=== PATIENT | female | born 1960 | race Caucasian/White ===

== ENCOUNTER 2016-04-04 23:39 | Emergency (ER) | payer OTHER ==
--- NOTE | ~2016-04-04 | US85 ---
[facility] A Service of [facility] RADIOLOGY TEXT RESULTS PATIENT: HUANG LIMA LOCATION: [facility] : 62 UNIT #: [id number] AGE: [address]: Sammy Sarmiento MD SEX: F ORDER DR: [id number] [facility] [address] [place], [place] [address] [id number] E MR#: [id number] Acc #: [id number] NAME: HUANG LIMA : 1960 SEX: F STUDY DATE/TIME: 04/05/2016 8:02 UNIT: [facility] ROOM: STUDY DESCRIPTION: LE Veins Unilat or Ltd Stdy Attending Physician: Sammy Sarmiento M.D. Ordering Physician: Yanely Salvador A.P.R.N. Primary Care Physician: Noemi Connolly M.D. MEDICAL IMAGING REPORT This report is preliminary unless electronic signature is present EXAM Right lower extremity venous ultrasound. HISTORY Pain for three days. Previous surgery for blood clot in right leg in January. FINDINGS The venous system is evaluated from the common femoral region down to the trifurcation veins and there is prompt compression of the common femoral, deep femoral, popliteal, anterior tibial, posterior tibial, peroneal and saphenous veins. The femoral vein appears to be thrombosed, its lumen is noncompressible and there is no flow. IMPRESSION Patient's study is positive for deep venous thrombosis in the right femoral vein. Otherwise the study is normal. Dictated by... Jan Blake M.D. THIS IS AN ELECTRONICALLY VERIFIED REPORT Jan Blake M.D. at 04/05/2016 1:57 PM Rico TD: 04/05/2016 10:25 JOB #: [id number] MEDICAL IMAGING REPORT COPY
[2016-04-04 23:11] LABS: URINE SOURCE CLEAN CATCH
[2016-04-04 23:16] LABS: URINE APPEARANCE CLEAR; URINE BILIRUBIN NEG (NEG); URINE BLOOD NEG (NEG); URINE COLOR YELLOW; URINE GLUCOSE NEG (NEG); URINE KETONE NEG (NEG); URINE LEUKOCYTE ESTERASE TRACE (NEG); URINE NITRATE NEG (NEG); URINE PROTEIN NEG (NEG); URINE SPECIFIC GRAVITY 1.017 (1.003-1.035); URINE UROBILINOGEN 0.2 MG/DL (NEG)
[2016-04-04 23:19] LABS: URBCS1 AUWI 0-2 /[HPF] (0-2); URINE BACTERIA AUWI NEG (NEGATIVE); URINE SQUAMOUS EPITHELIAL CELL OCC /[HPF]
[2016-04-04 23:22] LABS: CULTURE INDICATED? NO
[~2016-04-04 23:39] MED LIST: ADVAIR 250-501 EAC1 IH; ADVAIR 2501 DISK W/D PO; ADVAIR INH; ALBUTEROL MININEB NEB; ALBUTEROL17 G1 IH; ALBUTEROL17 GM INH; ALBUTEROL17 GM NEB; AVANDIA PO; AZITHROMYCIN250 MG PO; BACTROBAN15 GM TOP; BYETTA10 MCG/0.0 INJ; DOXYCYCLINE HY100 M1 PO; DOXYCYCLINE PO; GABAPENTIN400 M2 PO; GLUCOPHAGE XR500 MG PO; GLUCOPHAGE500 M1 PO; GLUCOPHAGE500 MG PO; HUMALOG100 U/M2 SUBQ; HUMALOG100 U/ML SUBQ; JANUVIA100 MG PO; LANTUS100 U/ML SUBQ; LEVAQUIN750 M1 PO; LEVEMIR SUBQ; LEVEMIR100 UNITS/ SUBQ; LINZESS145 MCG PO; METFORMIN PO; MIRALAX17 GM PO; NO MEDICATIONS; NORCO 5/325 TAB1 TAB PO; NOVOLOG100 UNITS/ SUBQ; PERCOCET 5-3251 TAB PO; PHENERGAN PO; PHENERGAN W/CO120 ML PO; PREDNISONE10 MG PO; PREDNISONE50 MG PO; PRILOSEC PO; PRINIVIL5 MG PO; REQUIP1 MG PO; RIFAMPIN300 MG PO; SINGULAIR PO; SPIRIVA18 MCG INH; SYNTHROID0.05 MG PO; ZESTRIL5 MG PO; ZOFRAN PO; [UNRECOGNIZED DRUG - OTHER]
[2016-04-05 00:20] LABS: BASOPHIL# 0.1 X10e3 (0-0.3); BASOPHIL% 1.2 % (0-2.5); EOSINOPHIL# 0.4 X10e3 (0-0.7); EOSINOPHIL% 5.4 % (0.0-7.0); HEMATOCRIT 36.5 % (35.0-45.0); HEMOGLOBIN 12.4 gm/dL (12.0-16.0); LYMPHOCYTE# 2.6 X10e3 (1.0-3.5); LYMPHOCYTE% 37.2 % (17.0-45.0); MEAN CELL VOLUME 86.7 FL (83-96); MEAN CORPUSCULAR HEMOGLOBIN 29.4 PG (28-34); MEAN CORPUSCULAR HGB CONC 33.9 g/dL (30-36); MEAN PLATELET VOLUME 7.2 FL (6.5-11.5); MONOCYTE# 0.7 X10e3 (0-1.0); MONOCYTE% 10.1 % (3.0-12.0); NEUTROPHIL# 3.3 X10e3 (1.5-7.1); NEUTROPHIL% 46.1 % (40-75); PLATELET COUNT 259 X10e3 (140-420); RED BLOOD COUNT 4.21 X10e (3.90-5.30); RED CELL DISTRIBUTION WIDTH 13.5 % (11.0-15.5); WHITE BLOOD COUNT 7.1 X10e3 (4.0-10.5)
[2016-04-05 00:37] LABS: PARTIAL THROMBOPLASTIN TIME 24.1 SECONDS (23.5-31.3)
[2016-04-05 00:39] LABS: DIFF IND NO
[2016-04-05 00:44] LABS: ALBUMIN SERUM 3.9 g/dL (3.5-5.0); ALKALINE PHOSPHATASE 46 U/L (32-92); ALT (SGPT) 55 U/L (10-40); AST (SGOT) 35 U/L (10-42); BILIRUBIN,TOTAL 0.3 mg/dL (0.2-2.0); BLOOD UREA NITROGEN 27 mg/dL (9-23); CALCIUM SERUM 9.1 mg/dL (8.4-10.2); CARBON DIOXIDE 26 mmol/L (22-31); CHLORIDE 101 mmol/L (100-111); CREATININE SERUM 0.6 mg/dL (0.6-1.4); GLOM FILT RATE Estimated ABOVE60 mL/min (>60); GLUCOSE FASTING 156 mg/dL (70-110); POTASSIUM 4.5 mmol/L (3.5-5.1); PROTEIN TOTAL SERUM 7.9 g/dL (6.0-8.3); SODIUM 136 mmol/L (135-145)
== END 2016-04-05 11:07 | disposition home or self-care (01) ==
LOC: CED 23:39
PROVIDERS: Nurse Practitioner
DX: I82.411 Acute embolism and thrombosis of right femoral vein (principal); M54.5 Low back pain; E78.5 Hyperlipidemia, unspecified; E11.9 Type 2 diabetes mellitus without complications; K21.9 Gastro-esophageal reflux disease without esophagitis; I10 Essential (primary) hypertension; Z88.0 Allergy status to penicillin
CPT/HCPCS: 36415; 80053; 81003; 82947; 83880; 85025; 85379; 85610; 85730; 93971; 96374; 96375; 99284; J2270; J2405; J2550

== ENCOUNTER 2016-05-11 23:59 | Emergency (ER) | payer OTHER ==
--- NOTE | ~2016-05-11 | CT2 ---
[facility] A Service of [facility] RADIOLOGY TEXT RESULTS PATIENT: HUANG LIMA LOCATION: [facility] : 62 UNIT #: [id number] AGE: [address]: Sammy Powell MD SEX: F ORDER DR: [id number] [facility] [address] [place], [place] [address] [id number] E MR#: [id number] Acc #: [id number] NAME: HUANG LIMA. : 1960 SEX: F STUDY DATE/TIME: 05/12/2016 3:36 UNIT: [facility] ROOM: STUDY DESCRIPTION: CT Abd and Pelv W Cont Attending Physician: Sammy Powell M.D. Ordering Physician: Sammy Powell M.D. Primary Care Physician: Noemi Connolly M.D. MEDICAL IMAGING REPORT This report is preliminary unless electronic signature is present EXAM CT abdomen and pelvis with contrast 05/12/2016 HISTORY 55-year-old female with abdominal pain for 2 days radiating to back. Diarrhea. COMPARISON CT abdomen and pelvis 09/15/2015 TECHNIQUE Helical scan performed through the abdomen and pelvis following administration of IV contrast. Coronal and sagittal reformatted images. This CT exam was performed with one or more of the following radiation dose reduction techniques: automatic exposure control, adjustment of mA and/or kV according to patient size, and iterative reconstruction. FINDINGS Visualized lung bases are unremarkable. The liver, spleen, pancreas, both adrenal glands, and both kidneys are within normal limits. Bilateral extrarenal pelves are again noted. No urinary tract stones or hydronephrosis. Abdominal aorta normal in course and caliber with extensive atherosclerotic calcification. Gallbladder surgically absent. Ventral abdominal wall hernia repair. Small bowel unremarkable without obstruction. Appendix is normal. Colon unremarkable. Moderate stool burden. No free fluid or free air. Urinary bladder is unremarkable. Uterus surgically absent. No free pelvic fluid. No acute bony abnormality. IMPRESSION 1. No acute abdominal or pelvic findings. [facility] A Service of [facility] RADIOLOGY TEXT RESULTS PATIENT: HUANG LIMA LOCATION: [facility] #: [id number] : 62 UNIT #: [id number] AGE: [address]: Sammy Powell MD SEX: F ORDER DR: 2. Normal appendix. 3. Moderate stool burden. 4. Cholecystectomy and ventral abdominal wall hernia repair. 5. Hysterectomy. Dictated by... Miles Harp M.D. THIS IS AN ELECTRONICALLY VERIFIED REPORT Miles Harp M.D. at 05/13/2016 4:40 PM NEFTALY/kathi TD: 05/12/2016 17:08 JOB #: [id number] MEDICAL IMAGING REPORT Page 1 of 1 COPY
[2016-05-12 02:57] LABS: BASOPHIL# 0.2 X10e3 (0-0.3); BASOPHIL% 1.4 % (0-2.5); EOSINOPHIL# 0.4 X10e3 (0-0.7); EOSINOPHIL% 3.5 % (0.0-7.0); HEMATOCRIT 38.1 % (35.0-45.0); HEMOGLOBIN 12.9 gm/dL (12.0-16.0); LYMPHOCYTE# 3.2 X10e3 (1.0-3.5); MEAN CORPUSCULAR HEMOGLOBIN 28.8 PG (28-34); MEAN CORPUSCULAR HGB CONC 33.9 g/dL (30-36); MEAN PLATELET VOLUME 6.7 FL (6.5-11.5); MONOCYTE# 0.9 X10e3 (0-1.0); MONOCYTE% 8.6 % (3.0-12.0); NEUTROPHIL# 6.3 X10e3 (1.5-7.1); NEUTROPHIL% 57.5 % (40-75); PLATELET COUNT 325 X10e3 (140-420); RED BLOOD COUNT 4.48 X10e (3.90-5.30); WHITE BLOOD COUNT 10.9 X10e3 (4.0-10.5)
[2016-05-12 03:00] LABS: DIFF IND NO
[2016-05-12 03:27] LABS: BILIRUBIN, DIRECT 0.1 mg/dL (0.0-0.2); BILIRUBIN,INDIRECT 0.4 mg/dL (0.0-0.9); BILIRUBIN,TOTAL 0.5 mg/dL (0.2-2.0); BUN/CREATININE RATIO 33.33; CALCIUM SERUM 9.5 mg/dL (8.4-10.2); CREATININE SERUM 0.6 mg/dL (0.6-1.4); GLOM FILT RATE Estimated 103.3 mL/min (>60); POTASSIUM 4.9 mmol/L (3.5-5.1)
[2016-05-12 05:47] LABS: URINE SOURCE CLEAN CATCH
[2016-05-12 06:07] LABS: URINE APPEARANCE CLEAR; URINE BILIRUBIN NEG (NEG); URINE BLOOD NEG (NEG); URINE COLOR YELLOW; URINE GLUCOSE NORM (NORM); URINE KETONE NEG (NEG); URINE LEUKOCYTE ESTERASE NEG (NEG); URINE NITRATE NEG (NEG); URINE PROTEIN NEG (NEG); URINE SPECIFIC GRAVITY 1.015 (1.003-1.035); URINE UROBILINOGEN NORM (NORM)
[2016-05-12 06:09] LABS: CULTURE INDICATED? NO
== END 2016-05-12 06:30 | disposition home or self-care (01) ==
LOC: CED 23:59
PROVIDERS: Emergency Medicine
DX: K59.00 Constipation, unspecified (principal); R11.0 Nausea; I10 Essential (primary) hypertension; E11.9 Type 2 diabetes mellitus without complications; F17.200 Nicotine dependence, unspecified, uncomplicated; Z88.0 Allergy status to penicillin
CPT/HCPCS: 36415; 74177; 80048; 80076; 81003; 82150; 83690; 85025; 96361; 96372; 96374; 96375; 99284; J0500; J1885; J2405; Q9967

== ENCOUNTER 2016-06-10 17:46 | Inpatient (IN) | payer OTHER ==
--- NOTE | ~2016-06-10 | HP ---
Unit #: [id number] #: [id number] Patient: HUANG LIMA [id number] [address] [place], [place] [address] [id number] I MR#: [id number] NAME: HUANG LIMA. ROOM: 328 Age: 55 Sex: F Admission Date: 06/10/2016 : 1960 Attending Physician: Noemi Connolly M.D. Primary Care Physician: Noemi Connolly M.D. HISTORY AND PHYSICAL CHIEF COMPLAINT Chest pain. HISTORY OF PRESENT ILLNESS Ms. Lima is a 55-year-old female who is very well known to me from the office setting. Her was last admission to [facility] was in 01/2016. The patient had chest pain. It was sudden in onset. It was constant. She took nitroglycerin at home and then EMS was called. The patient got nitroglycerin times five by EMS with partial relief of the pain. The patient also complained of shortness of breath associated with chest pain. No complaint of palpitations. No complaint of sweating. It was moderate in severity. It was like a pressure. The patient called it like angina kind of pain. The patient also complained of right lower extremity pain, swelling and burning and a wound. The patient has had a history of wound in the lower extremity. She has a history of peripheral arterial disease and had femoral popliteal bypass surgery done in 01/2016. PAST MEDICAL HISTORY The patient does have significant past medical history that includes 1. Diabetes. 2. Nonhealing diabetic ulcers in the past. 3. Diabetes mellitus type 2, uncontrolled. 4. Hypertension. 5. Hyperlipidemia. 6. Chronic obstructive pulmonary disease. 7. History of hepatitis C. PAST SURGICAL HISTORY 1. Hysterectomy. 2. Abdominal hernia repair. 3. Cholecystectomy. 4. History of right femoral to [id number] popliteal artery bypass. SOCIAL HISTORY The patient does not have any history of nicotine abuse. No history of alcohol abuse or drug abuse. FAMILY HISTORY Unremarkable. ALLERGIES Penicillin and sulfa. Unit #: [id number] #: [id number] Patient: HUANG LIMA REVIEW OF SYSTEMS No history of fever, chills or rigors. She does complain of swelling and wound on the right lower extremity more than the left, although she has had chronic ulceration on the bilateral lower extremities. She has had a history of peripheral arterial disease and was seen by Dr. Austin last visit and had surgery done. She does not complain of nausea and vomiting. She does not complain of syncopal episode or dizziness. She does not complain of abdominal pain. No constipation or diarrhea. PHYSICAL EXAMINATION GENERAL: The patient is seen and evaluated in room 328. VITALS: Blood pressure 158/87, respiratory rate 18, pulse 90, temperature 98.9, oxygen saturation 96% on room air. HEENT: Head is normocephalic. Eye movements are normal. Normal conjunctivae. NECK: Supple. No jugular venous distension. CHEST: Fair air entry. No additional sounds. HEART: S1 and S2 positive. Regular rhythm. ABDOMEN: Soft, nontender. EXTREMITIES: The patient has open weeping scabbed wound on the right lateral calf, mild surrounding cellulitis was seen. NEUROLOGIC: Awake, alert and oriented times three. No focal neurological deficits. DIAGNOSTIC STUDIES IMAGING: Ultrasound of the lower extremities was done, which was negative for any DVT. LABORATORY: BNP 16, white blood cell count 10.5, hemoglobin 13.3, hematocrit 39.7, platelet count 285. Sodium 137, potassium 4.2, chloride 103, BUN 20, creatinine 0.5. Liver enzymes are normal. Troponin was less than 0.05. Sugar this morning was 122. ASSESSMENT/PLAN The patient is being admitted to the telemetry unit with 1. Chest pain. Acute myocardial infarction has been ruled out. The patient has been seen by Dr. Cowan. The patient had a cardiac catheterization done which showed RCA is 100% at the junction of the proximal one-third and distal two-thirds. Recommendation was to add beta adwoa, Imdur, to the present medical therapy. If chest pain continues on maximal medical therapy, then could attempt PCI on the RCA or consider coronary artery bypass grafting. This will be as per cardiology. 2. Right lower extremity cellulitis and wound. Wound care consult has been done. Culture has been done. The patient is being started on Rocephin. Continue that at this time. The patient is not on any leukocytosis. 3. Diabetes mellitus type 2. Continue Accu-Cheks morning and evening and insulin sliding scale low-dose protocol and diabetic diet. Continue to observe closely. 4. Hypertension which is stable. Continue home medication. The plan of care has been discussed with the patient at length. She does verbalize understanding. Dictated by Unit #: [id number] #: [id number] Patient: HUANG LIMA Zaynab New TD: 06/11/2016 14:48 JOB #: [id number] HISTORY AND PHYSICAL Page 1 of 1 X Noemi Connolly MD X HISTORY AND PHYSICAL
--- NOTE | ~2016-06-10 | EKG ---
PATIENT: HUANG LIMA UNIT #: [id number] Ventricular Rate: 83 BPM Atrial Rate: 83 BPM P-R Interval: 162 ms QRS Duration: 100 ms Q-T Interval: 368 ms QTC Calculation(Bezet): 432 ms P Arcadia: 37 degrees Calculated R [place]cad[place]: 11 degrees Calculated T Arcadia: 34 degrees Diagnosis Line: Normal sinus rhythm Diagnosis Line: Normal ECG Diagnosis Line: When compared with ECG of 10-JUN-2016 14:46, Diagnosis Line: (unconfirmed) Diagnosis Line: No significant change was found Diagnosis Line: Confirmed by MASSIMO ARRIOLA MD ([id number]) on Diagnosis Line: 06/11/2016 4:38:23 PM INTERPRETING MD: FLAKO MONROY
--- NOTE | ~2016-06-10 | CO ---
Unit #: [id number] #: [id number] Patient: HUANG LIMA [id number] [address] [place], [place] [address] [id number] I MR#: [id number] NAME: HUANG LIMA ROOM: 328 Age: 55 Sex: F Admission Date: 06/10/2016 : 1960 Attending Physician: Noemi Connolly M.D. Primary Care Physician: Noemi Connolly M.D. Consultation Date: 06/11/2016 CONSULTATION REPORT REASON FOR CONSULTATION Chest pain. HISTORY OF PRESENT ILLNESS This is a 55-year-old white female with known history of peripheral arterial disease, January 2016 had a right femoral-popliteal artery bypass graft. Also history of diabetes with nonhealing wounds in the past. Hypertension, hyperlipidemia, reformed smoker, COPD, who came to the emergency room with a new wound on the outer aspect of her right leg calf area and also chest pain. According to the patient, she started having problems with her leg. She said she just scratched but it has continued to be more swollen and has some redness, appears to be some cellulitis on that exterior aspect of the calf on the right lower extremity. Denies any fever or chills. She says she has been treated for some recent what sounds like a sinus infection or a chest cold. The patient says she started developing some mid sternal chest pain yesterday morning. She said it feels like just a burning, stabbing pressure. She said it lasts just a few minutes. She denies any diaphoresis or nausea. She does feel a little palpitations and some increased shortness of breath at times. She did have some sublingual nitroglycerin which she took and she said it helped for a little while but it recurred. She took an aspirin at home. Looking back on her records, we have seen her in the past for the chest pain but did not do any extensive testing. She has never had a heart catheterization but did have a stress test in January which did show a possible basal inferior wall old infarct, otherwise no ischemia and her ejection fraction was normal. The patient has been admitted for further evaluation and workup. Cardiology has been asked to evaluate. PAST MEDICAL HISTORY 1. Diabetes mellitus type 2. 2. Hypertension. 3. Hyperlipidemia. 4. COPD, ex-smoker, quit 2 years ago. 5. Poor wound healing, diabetic ulcers in bilateral feet which are healed. 6. Status post right femoral popliteal artery bypass surgery 01/31/2016. 7. January 2016, dobutamine Cardiolite stress. No ischemia but a possible basal inferior wall old infarct. Ejection fraction 51%. 8. Hypothyroidism. 9. January 2016, 2D echo, normal LVEF. Diastolic dysfunction. Normal valves. 10. Reformed smoker. Unit #: [id number] #: [id number] Patient: HUANG LIMA PAST SURGICAL HISTORY 1. Femoral popliteal artery bypass surgery January 2016. 2. Hysterectomy. 3. Abdominal hernia repair. 4. Cholecystectomy. HOME MEDICATIONS 1. Nitrostat 0.4 mg sublingual p.r.n. for chest pain. 2. Aspirin 81 mg p.o. daily. 3. Oxycodone/acetaminophen 10/325 one tablet p.o. q.4 h. p.r.n. 4. Prilosec 40 mg p.o. daily. 5. Bactrim DS one tablet p.o. b.i.d. 6. Synthroid 50 mcg p.o. daily. 7. MiraLAX 17 gram p.o. daily. 8. Linzess 145 mcg p.o. daily. 9. Lipitor 20 mg p.o. daily. 10. Lisinopril 5 mg p.o. daily. 11. Levemir 35 units subcu daily. 12. Humalog 8 units subcu t.i.d. 13. Acetaminophen 650 mg q.4 h. p.r.n. pain. 14. Spiriva one inhalation daily. 15. Neurontin 400 mg p.o. t.i.d. p.r.n. 16. Januvia 100 mg p.o. daily. 17. Colace 100 mg p.o. b.i.d. ALLERGIES Penicillin. SOCIAL HISTORY Patient quit smoking 2 years ago. No alcohol or illicit drug abuse. She is trying to get disability due to her multiple medical problems. FAMILY HISTORY No known coronary artery disease in immediate family members. REVIEW OF SYSTEMS See details in HPI. PHYSICAL EXAMINATION VITAL SIGNS: Blood pressure 157/70, heart rate 88, respirations 16, temperature 98.1, O2 saturation 98% on room air. GENERAL: Ms. Lima is a 55-year-old white female in no acute respiratory distress. She is awake, alert, and oriented. NECK: Trachea midline. No thyromegaly, lymphadenopathy. Normal carotid upstrokes. No jugular venous distention. HEART: S1, S2. Regular rate and rhythm. No clicks, murmurs, or rubs. LUNGS: Diminished with a few faint scattered wheezes. ABDOMEN: Slightly obese, soft, nontender. Positive bowel sounds are present. EXTREMITIES: Pedal pulses are palpable weak on the right. They are warm to touch. There is a little bit of erythema on the right lower extremity around the calf. Trace right lower extremity pedal edema. DIAGNOSTIC STUDIES LABORATORY: Glucose 132, BUN 22, creatinine 0.6, EGFR 103, sodium 134, potassium 4.8, chloride 101, CO2 is 25, calcium 8.7, total protein 9.0, albumin 4.2, total bilirubin 0.2, AST 25, ALT 39, alkaline phosphatase 72. BNP 16. WBC 9.8, hemoglobin 12.4, hematocrit 36.6, platelets 260. Unit #: [id number] #: [id number] Patient: HUANG LIMA Initial cardiac enzymes CKMB 1.9, troponin less than 0.05; CKMB 1.7, troponin less than 0.05. INR 1.0. IMAGING: Chest x-ray shows no active disease. CARDIOVASCULAR: EKG shows normal sinus rhythm with ventricular rate of 83 beats per minute, probable Q wave in lead III, low voltage in aVF, poor R-wave progression. IMPRESSION 1. Chest pain. 2. January 2016 dobutamine Cardiolite stress test, no ischemia, possible basal inferior wall old infarct. Ejection fraction of 51%. 3. Right lower extremity cellulitis and wound. 4. History of peripheral arterial disease, status post femoral popliteal artery bypass 01/31/2016. 5. Hypothyroidism. 6. Diabetes mellitus type 2. 7. Hypertension. 8. Hyperlipidemia. 9. Normal LVEF on echo January 2016. 10. Chronic obstructive pulmonary disease. 11. Ex-smoker quit 2 years ago. PLAN 1. Cardiology consult to evaluate patient's chest pain. The patient's chest pain is suspicious for unstable angina and she has multiple risk factors including diabetes mellitus, hypertension, hyperlipidemia, quit smoker 2 years ago. With these multiple comorbidities and her symptoms and she just had a stress test four months ago, will proceed with a cardiac catheterization to further evaluate for ischemic heart disease. 2. Discussed with the patient risks and benefits including risk of bleeding, myocardial infarction, stroke, and even . Patient verbalized understanding and agrees to proceed. 3. Will initiate pre-cath orders. 4. Obtain a fasting lipid profile and TSH and evaluate. 5. On exam, there are no signs or symptoms of acute congestive heart failure. 6. Continue patient on aspirin, statin. Initiate a beta adwoa. She is on lisinopril and that will be continued. 7. industrial tractor driver has been consulted to evaluate her wound. 8. Will initiate a beta adwoa and continue on nitrate. 9. She had a dose of Lovenox and that dose will be held this morning before the cardiac catheterization. 10. Further recommendations pending the heart catheterization Dr. Cowan and Dr. Murdock. Dictated by... Guru VerdinRCarley for Zaynab Stack/gely Unit #: [id number] #: [id number] Patient: HUANG LIMA TD: 06/11/2016 16:09 JOB #: [id number] CONSULTATION REPORT Page 1 of 1 X Brittney Jimenez APRN X CONSULTATION REPORT
--- NOTE | ~2016-06-10 | CO ---
Unit #: [id number] #: [id number] Patient: HUANG LIMA [id number] [address] [place], [place] [address] [id number] Rufina MR#: [id number] NAME: HUANG LIMA. ROOM: [facility] Age: 55 Sex: F Admission Date: 06/11/2016 : 1960 Attending Physician: Noemi Connolly M.D. Primary Care Physician: Noemi Connolly M.D. Consultation Date: 06/13/2016 CONSULTATION REPORT REQUESTING PHYSICIAN Dr. Connolly. REASON FOR CONSULTATION MRSA in the leg wound. HISTORY OF PRESENT ILLNESS This is a 55-year-old white female with peripheral artery disease, diabetes, previous fem-pop bypass graft, chronic leg wounds, hypertension, hyperlipidemia, COPD who was admitted with chest pain. She does have chronic leg wound but there is no drainage other than occasional redness. Major reason for admission, however, was chest pain. Further cardiology workup showed coronary artery disease. She is currently on medical therapy. There is no plan for intervention. I was asked to see her for leg wounds and positive wound culture for MRSA. Patient, however, does not have any fever or chills, drainage from the wounds, or any painful legs. PAST MEDICAL HISTORY 1. Diabetes. 2. Chronic leg ulcers. 3. Type 2 diabetes with neuropathy. 4. Hypertension. 5. Hyperlipidemia. 6. COPD. 7. Hepatitis C. PAST SURGICAL HISTORY 1. Hysterectomy. 2. Abdominal hernia repair. 3. Cholecystectomy. 4. Lower extremity vascular bypass. SOCIAL HISTORY No history of active smoking, drug/alcohol use. FAMILY HISTORY Unremarkable. DRUG ALLERGIES Penicillin and sulfa; however, she is taking Bactrim without any problems. MEDICATIONS Her other medications were reviewed. She is on vancomycin, ceftriaxone, Unit #: [id number] #: [id number] Patient: HUANG LIMA and sulfa as well as lisinopril, Plavix, Coreg, Phenergan, Lipitor, Lovenox, Zofran, Percocet, Imdur, Linzess, MiraLax, Colace, nitroglycerin, Levemir, Januvia, Spiriva, Neurontin, Synthroid, Protonix. SYSTEMIC REVIEW Bilateral leg ulcers without any new change, some erythema around the ulcers but no drainage. No red streaks, fever, or chills. She has no chest pain now. No dyspnea, abdominal pain, dysuria, or diarrhea. PHYSICAL EXAMINATION GENERAL: Reveals a middle-aged white female who looks older than stated age. She is awake and alert in no acute distress. VITAL SIGNS: Stable. Temperature 98.5. No fever was documented during this admission except for one reading of 100. Heart rate 67, respirations 18, blood pressure 110/48. HEENT: Oral hygiene is poor. NECK: Supple. There is no JVD. EXTREMITIES: She has bilateral lower extremity calf ulcers laterally which are very superficial and clean. There is no purulence. There is some periwound erythema. There is also a small boil on the right house which has drain and is now scabbing. There is no lymphangitis, abscess, etc. LUNGS: Clear to percussion and auscultation. HEART: Heart sounds are normal. No murmur. ABDOMEN: Somewhat distended but soft and nontender. There is no rebound or guarding. Bowel sounds are normal. NEUROLOGIC: Nonfocal. DIAGNOSTIC STUDIES LABORATORY: Urinalysis is negative. Wound culture: MRSA. Sodium 132, potassium 4.4, chloride 99, CO2 of 25, BUN 21, creatinine 1. Procalcitonin less than 0.05. White count 6.7, hemoglobin 10.8, platelets 252,000. CRP is 0.7. Urine drug screen: Negative. IMAGING: Doppler ultrasound of the legs shows no evidence of DVT on the right side. Chest x-ray: Negative. IMPRESSION Superficial leg ulcers, longstanding without any new change. Some periwound erythema is concerning for possible low-grade cellulitis. The wound culture for methicillin-resistant Staphylococcus aureus but there is no obvious wound infection. RECOMMENDATIONS I will discontinue vancomycin and Rocephin. Will recommend topical Bactroban for five days. Continue Bactrim for five more days. I will be happy to see her in the wound clinic next week. This was discussed with the patient. Further recommendations will follow. Dictated by... Randall Alvarado M.D. / Unit #: [id number] #: [id number] Patient: HUANG LIMA TD: 06/14/2016 11:42 JOB #: [id number] CONSULTATION REPORT Page 1 of 1 X Randall Alvarado MD CONSULTATION REPORT
--- NOTE | ~2016-06-10 | US85 ---
[facility] A Service of [facility] RADIOLOGY TEXT RESULTS PATIENT: HUANG LIMA LOCATION: [facility] : 62 UNIT #: [id number] AGE: [address]: Noemi Connolly MD SEX: F ORDER DR: [id number] [facility] [address] [place], [place] [address] [id number] MR#: [id number] Acc #: [id number] NAME: HUANG LIMA. : 1960 SEX: F STUDY DATE/TIME: 06/10/2016 17:10 UNIT: [address] ROOM: [facility] STUDY DESCRIPTION: [facility] [employer] Stdy Attending Physician: Noemi Connolly M.D. Ordering Physician: Frida Joseph M.D. Primary Care Physician: Noemi Connolly M.D. MEDICAL IMAGING REPORT This report is preliminary unless electronic signature is present EXAM Right lower extremity venous ultrasound HISTORY Right leg pain and swelling for 1 day TECHNIQUE Venous ultrasound examination of the right lower extremity was performed using grayscale, spectral Doppler and color flow Doppler imaging. FINDINGS The examination is negative. There is no evidence of right lower extremity deep venous thrombus from the groin to the lower calf. Visualized greater saphenous vein is also patent. IMPRESSION Negative examination. No evidence of right lower extremity deep venous thrombosis. Dictated by... Sedrick Henley M.D. THIS IS AN ELECTRONICALLY VERIFIED REPORT Sedrick Henley M.D. at 06/11/2016 2:40 PM DFL/to TD: 06/10/2016 21:05 JOB #: [id number] [facility] A Service [facility] RADIOLOGY TEXT RESULTS PATIENT: HUANG LIMA LOCATION: [facility] : 62 UNIT #: [id number] AGE: [address]: Noemi Connolly MD SEX: F ORDER DR: MEDICAL IMAGING REPORT Page 1 of 1 COPY
--- NOTE | ~2016-06-10 | CR72 ---
[facility] A Service of [facility] RADIOLOGY TEXT RESULTS PATIENT: HUANG LIMA LOCATION: [facility] 328-01 : 62 UNIT #: [id number] AGE: [address]: Noemi Connolly MD SEX: F ORDER DR: [id number] [facility] [address] [place], [place] [address] [id number] I MR#: [id number] #: [id number] NAME: HUANG LIMA. : 1960 SEX: F STUDY DATE/TIME: 06/10/2016 17:54 UNIT: [address] ROOM: [facility] STUDY DESCRIPTION: CR Chest Single View Portable Attending Physician: Noemi Connolly M.D. Ordering Physician: Frida Joseph M.D. Primary Care Physician: Noemi Connolly M.D. MEDICAL IMAGING REPORT This report is preliminary unless electronic signature is present EXAM Portable chest, 06/10 INDICATIONS Chest pain, cough, congestion, shortness of air. Chest pain started today. Remaining symptoms started about 1 week ago. History of smoking. FINDINGS AP portable chest compared with 01/20/2016. Cardiac and mediastinal contours are normal. Lungs are clear. No pneumothorax. IMPRESSION No active disease. Dictated by... Michael Chavez Jr., M.D. THIS IS AN ELECTRONICALLY VERIFIED REPORT Michael Chavez Jr., M.D. at 06/10/2016 10:25 PM RLK/romain TD: 06/10/2016 21:00 JOB #: [id number] MEDICAL IMAGING REPORT Page 1 of 1 COPY
--- NOTE | ~2016-06-10 | EKG ---
PATIENT: HUANG LIMA UNIT #: [id number] Ventricular Rate: 99 BPM Atrial Rate: 99 BPM P-R Interval: 164 ms QRS Duration: 92 ms Q-T Interval: 350 ms QTC Calculation(Bezet): 449 ms P [place]: 32 degrees Calculated R [place]: 25 degrees Calculated T [place]: 34 degrees Diagnosis Line: Normal sinus rhythm Diagnosis Line: Possible Left atrial enlargement Diagnosis Line: Borderline ECG Diagnosis Line: When compared with ECG of 20-JAN-2016 17:12, Diagnosis Line: Nonspecific T wave abnormality now evident in Diagnosis Line: Inferior leads Diagnosis Line: Confirmed by MASSIMO ARRIOLA MD ([id number]) on Diagnosis Line: 06/11/2016 4:34:59 PM INTERPRETING MD: FLAKO MONROY
--- NOTE | ~2016-06-10 | DS ---
Unit #: [id number] #: [id number] Patient: HUANG LIMA [id number] [address] [place], [place] [address] [id number] I MR#: [id number] NAME: HUANG LIMA ROOM: 328 Age: 55 Sex: F Admission Date: 06/11/2016 : 1960 Discharge Date: 06/14/2016 Attending Physician: Noemi Connolly M.D. Primary Care Physician: Noemi Connolly M.D. DISCHARGE SUMMARY FINAL DIAGNOSES 1. Chest pain, status post cardiac catheterization which showed RCA 100% at the junction of the proximal one-third and distal two-thirds. Other coronaries are normal. Left ventricle is normal per catheterization. 2. Right lower extremity wound and cellulitis. 3. Culture positive for MRSA. 4. Peripheral arterial disease, recently more (1) bypass. 5. Diabetes mellitus type 2. 6. Hypertension. 7. Hyperlipidemia. 8. Chronic obstructive pulmonary disease. Ex-smoker. Quit two years ago. 9. Hypothyroidism. DISCHARGE MEDICATIONS 1. Bactrim DS 1 tablet p.o. b.i.d. for 5 days. 2. Isosorbide 30 mg daily. 3. Synthroid 50 mcg daily. 4. Nitroglycerin 0.4 mg sublingual p.r.n. chest pain. 5. Prilosec 40 mg daily. 6. Plavix 75 mg daily. 7. Oxycodone continued home dose. 8. Aspirin 81 mg daily. 9. Continue home dose of insulin. 10. Lisinopril 5 mg daily. 11. Lipitor 80 mg at nighttime. 12. Linzess 145 mcg daily. 13. MiraLAX 17 g daily. 14. Colace 100 mg b.i.d. 15. Januvia 100 mg daily. 16. Neurontin 400 mg t.i.d. 17. Spiriva 80 mcg inhaled daily. 18. Tylenol 650 mg q.4 h. p.r.n. 19. Bactroban applied topically b.i.d. to the wound. CONSULTANTS Dr. Murdock from cardiology services. Dr. Randall Alavrado from infectious disease services. PROCEDURES PERFORMED Cardiac catheterization with results as above. HOSPITAL COURSE Unit #: [id number] #: [id number] Patient: HUANG LIMA Ms. is a 55-year-old female who is very well known to me from multiple admission. The last admission to the hospital was 02/02/2016. This time the patient was admitted with chest pain. Acute myocardial infarction was ruled out. Dr. Cowan was consulted. The patient had a cardiac catheterization done and finds are as above. It has been decided that we will try medical treatment first. If that does not improve her symptoms, then the patient will either go for coronary artery bypass grafting or PCI. The patient does verbalize understanding. The patient's cardiac medications include Plavix, Imdur and DAVE inhibitors. The patient is aware of these medications. The patient was also found to have right lower extremity cellulitis. Culture was done, which was positive for MRSA. The patient was started on IV vancomycin. Dr. Alvarado was consulted. The patient has been placed on Bactrim p.o. The patient is stable and is being discharged home in stable condition. The patient will need Bactroban treatment for five days and Bactrim treatment for five days. The patient will follow up with Dr. Alvarado in the wound clinic. DIAGNOSTIC DATA LABORATORY: At discharge, glucose 74, sodium 132, potassium 4.4, chloride 99, BUN 21, creatinine 1.0, calcium 8.4, procalcitonin level 0.05. CBC shows white blood cell count 6.7, hemoglobin 10.8, hematocrit 31.8, platelets 252, sedimentation rate 50, c-reactive protein was 0.7. Wound culture MRSA positive. IMAGING: Right lower extremity venous ultrasound which was negative for DVT. Chest x-ray shows no active disease. PHYSICAL EXAMINATION VITALS: At discharge blood pressure 113/73, respiratory rate 18, pulse 72, temperature 98.4, oxygen saturation 96%. HEENT: Head is normocephalic. CHEST: Fair air entry. No additional sounds. HEART: S1 and S2 positive. Regular rhythm. ABDOMEN: Soft. EXTREMITIES: Right lower extremity swelling is present. Wound was examined, which is much, much improved. DISPOSITION The patient is being discharged home in stable condition . FOLLOWUP 1. Follow up with primary care provider in one week. 2. Follow up with Dr. Alvarado at [facility] in one week. 3. Follow up with Dr. Murdock, ironworker, 07/16/2016 at 12 noon. DISCHARGE INSTRUCTIONS 1. Medications as per medication reconciliation. 2. Continue wound care twice a day for five days. 3. Apply Bactroban to the wound twice a day for five days. 4. Continue Bactrim for five days. The plan of care has been discussed with the patient at length. Unit #: [id number] #: [id number] Patient: HUANG LIMA Dictated by... Zaynab Medina/jess TD: 06/15/2016 14:11 JOB #: [id number] DISCHARGE SUMMARY Page 1 of 1 X Noemi Connolly MD X DISCHARGE SUMMARY
[2016-06-10 15:29] LABS: BASOPHIL# 0.1 X10e3 (0-0.3); BASOPHIL% 0.9 % (0-2.5); EOSINOPHIL# 0.4 X10e3 (0-0.7); EOSINOPHIL% 3.3 % (0.0-7.0); HEMATOCRIT 39.7 % (35.0-45.0); HEMOGLOBIN 13.3 gm/dL (12.0-16.0); LYMPHOCYTE# 2.5 X10e3 (1.0-3.5); LYMPHOCYTE% 23.7 % (17.0-45.0); MEAN CELL VOLUME 86.9 FL (83-96); MEAN CORPUSCULAR HEMOGLOBIN 29.1 PG (28-34); MEAN CORPUSCULAR HGB CONC 33.5 g/dL (30-36); MEAN PLATELET VOLUME 6.9 FL (6.5-11.5); MONOCYTE# 0.6 X10e3 (0-1.0); MONOCYTE% 5.9 % (3.0-12.0); NEUTROPHIL% 66.2 % (40-75); PLATELET COUNT 285 X10e3 (140-420); RED BLOOD COUNT 4.57 X10e (3.90-5.30); RED CELL DISTRIBUTION WIDTH 13.2 % (11.0-15.5); WHITE BLOOD COUNT 10.5 X10e3 (4.0-10.5)
[2016-06-10 15:41] LABS: DIFF IND NO
[2016-06-10 15:51] LABS: ALBUMIN SERUM 4.2 g/dL (3.5-5.0); ALKALINE PHOSPHATASE 72 U/L (32-92); ALT (SGPT) 39 U/L (10-40); AST (SGOT) 25 U/L (10-42); BILIRUBIN,TOTAL 0.2 mg/dL (0.2-2.0); BLOOD UREA NITROGEN 20 mg/dL (9-23); CALCIUM SERUM 9.5 mg/dL (8.4-10.2); CARBON DIOXIDE 24 mmol/L (22-31); CHLORIDE 103 mmol/L (100-111); CREATININE SERUM 0.5 mg/dL (0.6-1.4); GLOM FILT RATE Estimated 109.7 mL/min (>60); GLUCOSE FASTING 119 mg/dL (70-110); POTASSIUM 4.2 mmol/L (3.5-5.1); SODIUM 137 mmol/L (135-145)
[2016-06-10 16:04] LABS: BILIRUBIN, DIRECT <0.1 mg/dL (0.0-0.2); BILIRUBIN,INDIRECT 0.1 mg/dL (0.0-0.9)
[2016-06-10 17:24] LABS: AMPHETAMINE NEG (NEG); BARBITURATES NEG (NEG); BENZODIAZEPINES NEG (NEG); COCAINE NEG (NEG); MARIJUANA NEG (NEG); OPIATES NEG (NEG); TRICYCLIC ANTIDEPRESSANTS NEG (NEG); U METHADONE NEG (NEG)
[2016-06-10 17:38] LABS: POC - CKMB 1.9 ng/mL (0.0-7.9); POC - TROPONIN <0.05 ng/mL (<=0.05)
[2016-06-10 18:23] LABS: POC - CKMB 1.7 ng/mL (0.0-7.9); POC - TROPONIN <0.05 ng/mL (<=0.05)
[2016-06-10] MEDS ORDERED: NITROGLYCERIN0.4 MG SL (18:44)
[2016-06-10] MEDS ORDERED: ASPIRIN81 MG PO (18:45)
[2016-06-10] MEDS ORDERED: OXYCODONE-APAP1 EAC5 PO (18:46)
[2016-06-10] MEDS ORDERED: PRILOSEC PO (18:46)
[2016-06-10] MEDS ORDERED: BACTRIM DS TAB1 EACH PO (18:47)
[2016-06-10] MEDS ORDERED: MIRALAX17 GM PO (18:47)
[2016-06-10] MEDS ORDERED: SYNTHROID PO (18:47)
[2016-06-10] MEDS ORDERED: LIPITOR20 MG PO (18:48)
[2016-06-10] MEDS ORDERED: ZESTRIL5 MG PO (18:48)
[2016-06-10] MEDS ORDERED: LINZESS145 MCG PO (18:48)
[2016-06-10] MEDS ORDERED: LEVEMIR SUBQ (18:49)
[2016-06-10] MEDS ORDERED: HUMALOG100 UNIT/1 SUBQ (18:49)
[2016-06-10] MEDS ORDERED: ACETAMINOPHEN PO (18:50)
[2016-06-10] MEDS ORDERED: SPIRIVA18 MCG INH (18:50)
[2016-06-10] MEDS ORDERED: NEURONTIN PO (18:51)
[2016-06-10] MEDS ORDERED: JANUVIA PO (18:51)
[2016-06-10] MEDS ORDERED: DOCUSATE SODIU100 MG PO (18:52)
[2016-06-11 09:07] LABS: HEMATOCRIT 36.6 % (35.0-45.0); HEMOGLOBIN 12.4 gm/dL (12.0-16.0); MEAN CELL VOLUME 86.7 FL (83-96); MEAN CORPUSCULAR HEMOGLOBIN 29.3 PG (28-34); MEAN CORPUSCULAR HGB CONC 33.9 g/dL (30-36); MEAN PLATELET VOLUME 6.5 FL (6.5-11.5); RED BLOOD COUNT 4.23 X10e (3.90-5.30); RED CELL DISTRIBUTION WIDTH 13.1 % (11.0-15.5); WHITE BLOOD COUNT 9.8 X10e3 (4.0-10.5)
[2016-06-11 09:21] LABS: PARTIAL THROMBOPLASTIN TIME 25.9 SECONDS (23.5-31.3); PROTHROMBIN TIME (PATIENT) 10.4 SECONDS (9.6-11.5)
[2016-06-11 10:41] LABS: BUN/CREATININE RATIO 36.66; CALCIUM SERUM 8.7 mg/dL (8.4-10.2); CREATININE SERUM 0.6 mg/dL (0.6-1.4); GLOM FILT RATE Estimated 103.3 mL/min (>60); POTASSIUM 4.8 mmol/L (3.5-5.1)
[2016-06-12 05:15] LABS: HEMATOCRIT 34.7 % (35.0-45.0); HEMOGLOBIN 11.7 gm/dL (12.0-16.0); MEAN CELL VOLUME 85.5 FL (83-96); MEAN CORPUSCULAR HEMOGLOBIN 28.8 PG (28-34); MEAN CORPUSCULAR HGB CONC 33.7 g/dL (30-36); RED BLOOD COUNT 4.06 X10e (3.90-5.30); RED CELL DISTRIBUTION WIDTH 12.7 % (11.0-15.5); WHITE BLOOD COUNT 9.1 X10e3 (4.0-10.5)
[2016-06-12 07:13] LABS: BUN/CREATININE RATIO 35.71; CALCIUM SERUM 8.6 mg/dL (8.4-10.2); CREATININE SERUM 0.7 mg/dL (0.6-1.4); GLOM FILT RATE Estimated 98.2 mL/min (>60); POTASSIUM 4.7 mmol/L (3.5-5.1)
[2016-06-13 05:46] LABS: BASOPHIL# 0.1 X10e3 (0-0.3); BASOPHIL% 1.2 % (0-2.5); EOSINOPHIL# 0.3 X10e3 (0-0.7); EOSINOPHIL% 4.2 % (0.0-7.0); HEMATOCRIT 31.8 % (35.0-45.0); HEMOGLOBIN 10.8 gm/dL (12.0-16.0); LYMPHOCYTE# 2.4 X10e3 (1.0-3.5); LYMPHOCYTE% 35.8 % (17.0-45.0); MEAN CELL VOLUME 85.8 FL (83-96); MEAN CORPUSCULAR HEMOGLOBIN 29.1 PG (28-34); MEAN CORPUSCULAR HGB CONC 33.9 g/dL (30-36); MEAN PLATELET VOLUME 6.7 FL (6.5-11.5); MONOCYTE# 0.8 X10e3 (0-1.0); MONOCYTE% 12.4 % (3.0-12.0); NEUTROPHIL# 3.1 X10e3 (1.5-7.1); NEUTROPHIL% 46.4 % (40-75); PLATELET COUNT 252 X10e3 (140-420); WHITE BLOOD COUNT 6.7 X10e3 (4.0-10.5)
[2016-06-13 05:51] LABS: DIFF IND NO
[2016-06-13 06:29] LABS: PROCALCITONIN <0.05 NG/ML
[2016-06-13 06:45] LABS: BLOOD UREA NITROGEN 21 mg/dL (9-23); CALCIUM SERUM 8.4 mg/dL (8.4-10.2); CARBON DIOXIDE 25 mmol/L (22-31); CHLORIDE 99 mmol/L (100-111); GLOM FILT RATE Estimated 63.8 mL/min (>60); GLUCOSE FASTING 148 mg/dL (70-110); POTASSIUM 4.4 mmol/L (3.5-5.1); SODIUM 132 mmol/L (135-145)
[2016-06-13 07:49] LABS: URINE SOURCE CLEAN CATCH
[2016-06-13 07:55] LABS: URINE APPEARANCE CLEAR; URINE BILIRUBIN NEG (NEG); URINE BLOOD NEG (NEG); URINE COLOR YELLOW; URINE GLUCOSE NEG (NEG); URINE KETONE NEG (NEG); URINE LEUKOCYTE ESTERASE NEG (NEG); URINE NITRATE NEG (NEG); URINE PH 5.5 (5-8); URINE PROTEIN NEG (NEG); URINE SPECIFIC GRAVITY 1.014 (1.003-1.035); URINE UROBILINOGEN 0.2 MG/DL (NEG)
[2016-06-13 08:01] LABS: CULTURE INDICATED? NO
[2016-06-14] MEDS ORDERED: BACTROBAN15 GM TOP (16:52)
[2016-06-14] MEDS ORDERED: LIPITOR80 MG PO (16:54)
[2016-06-14] MEDS ORDERED: CLOPIDOGREL BIS75 MG PO (16:55)
[2016-06-14] MEDS ORDERED: IMDUR-ER30 M2 PO (16:57)
[2016-06-14] MEDS ORDERED: BACTRIM DS TAB1 EACH PO (17:03)
== END 2016-06-14 17:52 | disposition home or self-care (01) | DRG 287 ==
LOC: CED 17:46 → CEDOF 17:47 → C3A PCU 20:50
PROVIDERS: Emergency Medicine; Internal Medicine Cardiovascular Disease; Physician Assistant Medical
PROC: 4A023N7 Measurement of Cardiac Sampling and Pressure, Left Heart, Percutaneous Approach (ICD-10-PCS; principal; 2016-06-11)
PROC: B211YZZ Fluoroscopy of Multiple Coronary Arteries using Other Contrast (ICD-10-PCS; 2016-06-11)
PROC: B215YZZ Fluoroscopy of Left Heart using Other Contrast (ICD-10-PCS; 2016-06-11)
DX: I25.119 Atherosclerotic heart disease of native coronary artery with unspecified angina pectoris (principal); E11.622 Type 2 diabetes mellitus with other skin ulcer; E11.40 Type 2 diabetes mellitus with diabetic neuropathy, unspecified; I95.9 Hypotension, unspecified; L03.115 Cellulitis of right lower limb; I73.9 Peripheral vascular disease, unspecified; L97.919 Non-pressure chronic ulcer of unspecified part of right lower leg with unspecified severity; B95.62 Methicillin resistant Staphylococcus aureus infection as the cause of diseases classified elsewhere; I10 Essential (primary) hypertension; E78.5 Hyperlipidemia, unspecified; J44.9 Chronic obstructive pulmonary disease, unspecified; E03.9 Hypothyroidism, unspecified; Z87.891 Personal history of nicotine dependence; Z88.0 Allergy status to penicillin; Z88.2 Allergy status to sulfonamides; Z90.710 Acquired absence of both cervix and uterus; Z90.49 Acquired absence of other specified parts of digestive tract; Z79.4 Long term (current) use of insulin; B19.20 Unspecified viral hepatitis C without hepatic coma; R50.9 Fever, unspecified
CPT/HCPCS: 36415; 71010; 80048; 80061; 80076; 80307; 81003; 82308; 82553; 82947; 83880; 84484; 85025; 85027; 85610; 85652; 85730; 86140; 87070; 87077; 87186; 87205; 93005; 93971; 94640; 94664; 94760; 99285; C1769; C1887; C1894; J0696; J1644; J1650; J1815; J2250; J2270; J2405; J3010; J3370

== ENCOUNTER 2016-06-26 20:46 | Emergency (ER) | payer OTHER ==
--- NOTE | ~2016-06-26 | US85 ---
[facility] of [facility] RADIOLOGY TEXT RESULTS PATIENT: HUANG LIMA LOCATION: [facility] : 62 UNIT #: [id number] AGE: [address]: Sammy Sarmiento MD SEX: F ORDER DR: [id number] [facility] [address] [place], [place] [address] [id number] MR#: [id number] #: [id number] NAME: HUANG LIMA : 1960 SEX: F STUDY DATE/TIME: 06/27/2016 00:10 UNIT: [facility] ROOM: STUDY DESCRIPTION: [facility] Attending Physician: Sammy Sarmiento M.D. Ordering Physician: Sammy Sarmiento M.D. Primary Care Physician: Noemi Connolly M.D. MEDICAL IMAGING REPORT This report is preliminary unless electronic signature is present EXAM Right leg vein Doppler, 06/27 0010 hours INDICATIONS Right leg pain and swelling for 1 day. TECHNIQUE Venous ultrasound examination of the right lower extremity was performed using grayscale, spectral Doppler and color flow Doppler imaging. FINDINGS The examination is negative. There is no evidence of right lower extremity deep venous thrombus from the groin to the lower calf. Visualized greater saphenous vein is also patent. IMPRESSION Negative examination. No evidence of right lower extremity deep venous thrombosis. Dictated by... Michael Chavez Jr., M.D. THIS IS AN ELECTRONICALLY VERIFIED REPORT Michael Chavez Jr., M.D. at 06/27/2016 6:02 AM SENIA/romain TD: 06/27/2016 01:42 JOB #: [id number] MEDICAL IMAGING REPORT Page 1 of 1 COPY
[~2016-06-26 20:46] MED LIST changes: +ACETAMINOPHEN PO; +ASPIRIN81 MG PO; +BACTRIM DS TAB1 EACH PO; +CLOPIDOGREL BIS75 MG PO; +DOCUSATE SODIU100 MG PO; +HUMALOG100 UNIT/1 SUBQ; +IMDUR-ER30 M2 PO; +JANUVIA PO; +LIPITOR20 MG PO; +LIPITOR80 MG PO; +NEURONTIN PO; +NITROGLYCERIN0.4 MG SL; +OXYCODONE-APAP1 EAC5 PO; +SYNTHROID PO
== END 2016-06-27 01:25 | disposition home or self-care (01) ==
LOC: CED 20:46
DX: M79.651 Pain in right thigh (principal); E11.9 Type 2 diabetes mellitus without complications; I10 Essential (primary) hypertension; J44.9 Chronic obstructive pulmonary disease, unspecified; Z90.710 Acquired absence of both cervix and uterus
CPT/HCPCS: 93971; 99284

== ENCOUNTER 2016-09-08 17:44 | Observation (INO) | payer OTHER ==
[~2016-09-08] VITALS: Ht 170.2 cm; Wt 79.4 kg
--- NOTE | ~2016-09-08 | DS ---
Unit #: [id number] #: [id number] Patient: HUANG LIMA [id number] [address] [address] [id number] I MR#: [id number] NAME: HUANG LIMA ROOM: 55 Age: 56 Sex: F Admission Date: 09/08/2016 : 1960 Discharge Date: Attending Physician: Matthew Rae M.D. Primary Care Physician: Noemi Connolly M.D. DISCHARGE SUMMARY SHORT STAY SUMMARY CHIEF COMPLAINT Chest pain. HISTORY OF PRESENTING ILLNESS Ms. Russ is a 56-year-old female with multiple medical problems who came because of chest pain. The patient's last admission to hospital was June 2016. She was doing well until yesterday morning. She woke up with chest pain. She had some chest tightness. She complains of tingling sensation of the left upper extremity but that is her normal and she does get off an on numbness and tingling which is kind of chronic for her. She does not complain of any neck pain. She was kind of hot yesterday and was sweating all throughout the day. She did not have shortness of breath more than normal. She was kind of nauseous but did not throw up. She also had some back pain which was getting worse. The patient has no complaint of abdominal pain. No complaint of dizziness or syncopal episode. PAST MEDICAL HISTORY 1. History of coronary artery disease, status post cardiac catheterization in June 2016 which showed RCA 100% at the junction of proximal one third and distal two thirds. Other coronaries are normal. 2. History of peripheral vascular disease, status post right femoral popliteal artery bypass surgery on 01/31/2016. 3. Diabetes mellitus type 2. 4. Hypertension. 5. Hyperlipidemia. 6. COPD. 7. Hypothyroidism. 8. Reformed smoker. PAST SURGICAL HISTORY 1. History of femoral popliteal artery bypass surgery January 2016. 2. Abdominal hernia repair. 3. Hysterectomy. 4. Cholecystectomy. ALLERGIES Patient is allergic to penicillin. HOME MEDICATIONS 1. Nitroglycerin 0.4 mg sublingual p.r.n. 2. Aspirin 81 mg daily. Unit #: [id number] #: [id number] Patient: HUANG LIMA 3. Prilosec 40 mg daily. 4. Synthroid 50 mcg daily. 5. MiraLAX 17 grams daily. 6. Linzess 145 mcg daily. 7. Zestril 5 mg daily. 8. Levemir 35 units subcu daily. 9. Humalog 8 units subcu three times a day. 10. Tylenol 650 q.4 p.r.n. 11. Spiriva, one inhaler daily. 12. Neurontin 300 mg three times a day. 13. Januvia 100 mg daily. 14. Colace 100 mg twice a day. 15. Bactroban applied topically twice a day. 16. Lipitor 80 mg at bedtime. 17. Imdur ER 30 mg daily. SOCIAL HISTORY The patient is a reformed smoker. No history of drug abuse or alcohol abuse. FAMILY HISTORY Not remarkable. REVIEW OF SYMPTOM As per History of Presenting Illness. PHYSICAL EXAMINATION GENERAL: The patient is lying comfortably in bed in no respiratory distress. VITAL SIGNS: Blood pressure is 133/70, respiratory rate 18, pulse is 72, temperature 98.1. Oxygen saturation is 95%. HEENT: Head is normocephalic. Eye movements are normal. NECK: Supple. CHEST: Fair air entry, no additional sounds. CVS: S1, S2 positive. Regular rhythm. ABDOMEN: Soft. No tenderness. Bowel sounds are positive. EXTREMITIES: Multiple wounds are present on right and left lower extremity. Pulses are palpable. 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 No focal neurological deficit. DIAGNOSTIC STUDIES LABORATORY: WBC 8.9, hemoglobin 13.9, hematocrit 40.2 and platelet count of 277. Troponin is less than 0.05. Sodium 130, potassium 4.7, chloride 96, BUN 21, creatinine 0.6. Liver enzymes are stable. Second set of troponin shows less than 0.05. Glucose 212. HOSPITAL COURSE Ms. Russ is admitted to [facility] telemetry unit. Acute myocardial infarction has been ruled out. Dr. Cowan was consulted. This is very atypical pain. It does not seem to be cardiac related. Wound care nurse will be consulted. Patient will be discharged home. Home medications have been reviewed and adjusted. I have discussed with Dr. Cowan. Unit #: [id number] #: [id number] Patient: HUANG LIMA Patient will be discharged home with two new medications which are as follows: 1. Atenolol 25 mg p.o. daily. 2. Prilosec 20 mg daily. DISCHARGE INSTRUCTIONS 1. Patient is being discharged home in stable condition. 2. Follow up with primary care provider in one week. 3. Follow up Dr. Cowan on November 11 at 3 p.m. Dictated by... Zaynab Medina/dunia TD: 09/09/2016 10:48 JOB #: [id number] DISCHARGE SUMMARY Page 1 of 1 X Noemi Connolly MD X DISCHARGE SUMMARY
--- NOTE | ~2016-09-08 | EKG ---
PATIENT: HUANG LIMA UNIT #: [id number] Ventricular Rate: 76 BPM Atrial Rate: 76 BPM P-R Interval: 172 ms QRS Duration: 96 ms Q-T Interval: 410 ms QTC Calculation(Bezet): 461 ms P [place]: 18 degrees Calculated R [place]: 10 degrees Calculated T [place]: 38 degrees Diagnosis Line: Normal sinus rhythm Diagnosis Line: Possible Left atrial enlargement Diagnosis Line: Inferior infarct (cited on or before 08-SEP-2016) Diagnosis Line: Borderline ECG Diagnosis Line: When compared with ECG of 08-SEP-2016 17:49, Diagnosis Line: (unconfirmed) Diagnosis Line: No significant change was found Diagnosis Line: Confirmed by BLU FISH MD ([id number]) on 09/11/2016 Diagnosis Line: 6:13:22 PM INTERPRETING MD: ABE MONROY
--- NOTE | ~2016-09-08 | EKG ---
PATIENT: HUANG LIMA UNIT #: [id number] Ventricular Rate: 90 BPM Atrial Rate: 90 BPM P-R Interval: 160 ms QRS Duration: 98 ms Q-T Interval: 372 ms QTC Calculation(Bezet): 455 ms P [place]: 51 degrees Calculated R [place]: 29 degrees Calculated T [place]: 49 degrees Diagnosis Line: Normal sinus rhythm Diagnosis Line: Possible Left atrial enlargement Diagnosis Line: Possible Inferior infarct , age undetermined Diagnosis Line: Abnormal ECG Diagnosis Line: When compared with ECG of 11-JUN-2016 08:17, Diagnosis Line: Borderline criteria for Inferior infarct are now Diagnosis Line: Present Diagnosis Line: Confirmed by BLU FISH MD ([id number]) on 09/11/2016 Diagnosis Line: 7:51:47 AM INTERPRETING MD: ABE MONROY
--- NOTE | ~2016-09-08 | CO ---
Unit #: [id number] #: [id number] Patient: HUANG LIMA [id number] [address] [place], [place] [address] [id number] I MR#: [id number] NAME: HUANG LIMA ROOM: 55 Age: 56 Sex: F Admission Date: 09/08/2016 : 1960 Attending Physician: Matthew Rae M.D. Primary Care Physician: Noemi Connolly M.D. Consultation Date: 09/09/2016 CONSULTATION REPORT REASON FOR CONSULTATION Chest pain. HISTORY OF PRESENT ILLNESS This is a 56-year-old white female with known history of having cardiac cath this past June, who had an ejection fraction of 55% and a chronic total occlusion of the RCA at the junction of the proximal third and distal two-thirds of the vessel. She also had normal EF found, COPD, diabetes mellitus, hypertension, hyperlipidemia, hypothyroidism. The patient came to the hospital with persistent chest pain. She says it started midsternal chest discomfort last night. She said it was waxing and waning for a while, but then it persisted. She denies taking anything for her stomach or eaten any spicy foods. The patient now states that the discomfort stay mostly in substernal chest wall. She denies any pain up in her neck, bilateral jaws, shoulders, arms, or elbow. She denies any nausea, vomiting, diarrhea, or abdominal pain. No presyncope or syncopal episodes. The pain is somewhat sharp in nature at times, then seemed to be more of a pressure; she rates it on a pain scale 1 to 10 to be about 6. She denies diaphoresis or shortness of breath. No recent cough, fever or chills. In the emergency room, the patient's blood pressure was 124/76, heart rate 90, respirations 16, temperature 98.8, O2 saturation was 96% on room air. The patient's EKG shows normal sinus rhythm nothing acute. Initial cardiac enzymes are negative. The patient was given IV morphine along with aspirin 325. The patient will be admitted with further evaluation and Dr. Cowan review her last cardiac cath film. The patient state she did take some sublingual nitroglycerin and it did really help the chest discomfort. PAST MEDICAL HISTORY 1. Cardiac cath in 06/2016 showed LVEF of 55%. Chronic total occlusion of the RCA at the junction of the proximal third and distal two-thirds, 100% stenosis in the proximal RCA. 2. Preserved left ventricular systolic function. 3. Nicotine abuse. 4. Peripheral arterial disease. She had a right femoral-popliteal bypass in 01/2016. 5. History of hepatitis C. 6. COPD. 7. Hypothyroidism. 8. Quit smoking. Unit #: [id number] #: [id number] Patient: HUANG LIMA PAST SURGICAL HISTORY 1. Hysterectomy. 2. Uterine tumor removed. 3. Abdominal hernia repair. 4. Cholecystectomy. 5. Popliteal bypass surgery on the right in 01/2016. HOME MEDICATIONS Spiriva 1 inhalation daily, Neurontin 400 mg p.o. t.i.d., Januvia 100 mg p.o. daily, Colace 100 mg p.o. b.i.d., Bactroban topically on her wound, Linzess 145 mcg p.o. daily, lisinopril 5 mg p.o. daily at h.s., Levemir 35 units subcu daily, Humalog 8 units subcu t.i.d. with meals, acetaminophen 600 mg p.o. every 4 hours p.r.n., Nitrostat 0.4 mg sublingual p.r.n., aspirin 81 mg daily, Prilosec 40 mg p.o. daily, Synthroid 50 mcg p.o. daily, MiraLax 17 g p.o. daily, Lipitor 80 mg p.o. at bedtime, Imdur ER 30 mg p.o. daily. ALLERGIES Penicillin. SOCIAL HISTORY The patient quit smoking 2 years ago. No alcohol or illicit drug abuse. FAMILY HISTORY No known coronary artery disease in her immediate family members. REVIEW OF SYSTEMS See details in HPI. PHYSICAL EXAMINATION GENERAL: Ms. Lima is a 56-year-old white female, in no acute respiratory distress. She is awake, alert, and oriented. VITAL SIGNS: Blood pressure is 133/70, heart rate 72, respirations 18, temperature 98.1, O2 saturations 95% on room air. NECK: Trachea midline. No thyromegaly or lymphadenopathy. Normal carotid upstrokes. No jugular venous distention. HEART: S1, S2. Regular rate and rhythm. No clicks, murmurs, or rubs. LUNGS: Slightly diminished, otherwise clear. ABDOMEN: Soft, nontender. Positive bowel sounds present. EXTREMITIES: Pedal pulses are palpable. No pedal edema. DIAGNOSTIC STUDIES LABORATORY RESULTS: Glucose is 231, BUN 21, creatinine 0.7, eGFR is 97.5, sodium 131, potassium 4.5, chloride 97, CO2 of 26, calcium is 9.3, phosphorus is 1.6, magnesium is 1.7, total protein is 8.5, fasting lipid profile. Initial cardiac enzymes CK-MB is 2.1, troponin less than 0.05. CK-MB is 1.8, troponin less than 0.05. WBCs 8.1, hemoglobin 13, hematocrit 37.3, and platelets is 256. IMAGING STUDIES: Chest x-ray, preliminary report, no active disease. CARDIOVASCULAR STUDIES: EKG sinus rhythm with a left atrial enlargement, inferior Q waves, poor R-wave progression. IMPRESSION 1. Chest pain questionable etiology. 2. History of chronic total occlusion in the right coronary artery found on catheterization 06/2016. Unit #: [id number] #: [id number] Patient: HUANG LIMA 3. Diabetes mellitus, type 2. 4. Hypertension. 5. Hyperlipidemia. 6. Peripheral arterial disease, status post right femoral bypass in 01/2016. 7. Left ventricular ejection fraction was normal with impaired relaxation and normal valves on 2D echo in 01/2016. 8. Diabetes mellitus, type 2. 9. Hypertension. 10. Hyperlipidemia. 11. Chronic obstructive pulmonary disease. 12. History of hepatitis C. 13. Hypothyroidism. 14. Reformed smoker. PLAN 1. Cardiology consult to assist with evaluation of the patient's complaints of chest pain. The patient, under her description, discomfort may be more pleuritic in nature. Dr. Cowan reviewed the patient's cath films that he performed on her this past June. He explained to the patient that the RCA is very well collateralized and those pains cannot be controlled with medications, medical treatment should continue. He did explain to the patient that a PCI only has about 50% or less success rate with this type of blockage. 2. We will add beta-adwoa, atenolol, and we increase nitrates, and also Prilosec [address] Cowan on interview and exam, he thinks that her symptoms are more GI in nature. 3. Dr. Cowan wants the patient to see him in about 6 to 8 weeks. We will see the patient in the office on 11/11/2016 at 3 o'clock p.m. 4. On exam, there are no signs or symptoms of acute congestive heart failure. 5. Further recommendations pending per . Thank you very much for allowing us to assist in her care. Dictated by... Brittney Jimenez A.P.R.N. for Zaynab Darden/joy TD: 09/09/2016 23:57 JOB #: [id number] CONSULTATION REPORT Page 1 of 1 X Brittney Jimenez APRN X CONSULTATION REPORT
[2016-09-08 18:43] LABS: BASOPHIL# 0.1 X10e3 (0-0.3); EOSINOPHIL# 0.3 X10e3 (0-0.7); HEMATOCRIT 40.2 % (35.0-45.0); HEMOGLOBIN 13.9 gm/dL (12.0-16.0); LYMPHOCYTE# 2.3 X10e3 (1.0-3.5); LYMPHOCYTE% 25.9 % (17.0-45.0); MEAN CELL VOLUME 87.3 FL (83-96); MEAN CORPUSCULAR HEMOGLOBIN 30.2 PG (28-34); MEAN CORPUSCULAR HGB CONC 34.6 g/dL (30-36); MEAN PLATELET VOLUME 6.8 FL (6.5-11.5); MONOCYTE# 0.7 X10e3 (0-1.0); MONOCYTE% 8.4 % (3.0-12.0); NEUTROPHIL# 5.5 X10e3 (1.5-7.1); NEUTROPHIL% 61.7 % (40-75); PLATELET COUNT 277 X10e3 (140-420); WHITE BLOOD COUNT 8.9 X10e3 (4.0-10.5)
[2016-09-08 18:55] LABS: DIFF IND NO
[2016-09-08 18:59] LABS: POC - CKMB 2.1 ng/mL (0.0-7.9); POC - TROPONIN <0.05 ng/mL (<=0.05)
[2016-09-08 19:05] LABS: ALBUMIN SERUM 4.1 g/dL (3.5-5.0); BILIRUBIN, DIRECT 0.1 mg/dL (0.0-0.2); BILIRUBIN,INDIRECT 0.4 mg/dL (0.0-0.9); BILIRUBIN,TOTAL 0.5 mg/dL (0.2-2.0); CALCIUM SERUM 9.4 mg/dL (8.4-10.2); CREATININE SERUM 0.6 mg/dL (0.6-1.4); GLOM FILT RATE Estimated 102.6 mL/min (>60); POTASSIUM 4.7 mmol/L (3.5-5.1); PROTEIN TOTAL SERUM 8.5 g/dL (6.0-8.3)
[2016-09-08 22:40] LABS: POC - CKMB 1.8 ng/mL (0.0-7.9); POC - TROPONIN <0.05 ng/mL (<=0.05)
[2016-09-09 05:18] LABS: BASOPHIL# 0.1 X10e3 (0-0.3); BASOPHIL% 1.5 % (0-2.5); EOSINOPHIL# 0.3 X10e3 (0-0.7); EOSINOPHIL% 3.2 % (0.0-7.0); HEMATOCRIT 37.3 % (35.0-45.0); LYMPHOCYTE% 36.7 % (17.0-45.0); MEAN CELL VOLUME 87.1 FL (83-96); MEAN CORPUSCULAR HEMOGLOBIN 30.3 PG (28-34); MEAN CORPUSCULAR HGB CONC 34.8 g/dL (30-36); MEAN PLATELET VOLUME 6.8 FL (6.5-11.5); MONOCYTE# 0.7 X10e3 (0-1.0); MONOCYTE% 9.2 % (3.0-12.0); NEUTROPHIL% 49.4 % (40-75); PLATELET COUNT 256 X10e3 (140-420); RED BLOOD COUNT 4.28 X10e (3.90-5.30); RED CELL DISTRIBUTION WIDTH 13.2 % (11.0-15.5); WHITE BLOOD COUNT 8.1 X10e3 (4.0-10.5)
[2016-09-09 05:27] LABS: DIFF IND NO
[2016-09-09 06:07] LABS: CALCIUM SERUM 9.3 mg/dL (8.4-10.2); CREATININE SERUM 0.7 mg/dL (0.6-1.4); GLOM FILT RATE Estimated 97.5 mL/min (>60); POTASSIUM 4.5 mmol/L (3.5-5.1)
[2016-09-09] MEDS ORDERED: TENORMIN25 MG PO (22:04)
[2016-09-09] MEDS ORDERED: PRILOSEC PO (22:06)
== END 2016-09-09 22:40 | disposition home or self-care (01) ==
LOC: CED 17:44 → C5B 22:23 → CEDOF 22:23 → CED 22:25 → C5B 22:25 → CEDOF 22:25 → C5B 23:45 → CEDOF 23:45 → C5B 09-09 22:40
PROVIDERS: Hospitalist
DX: R07.9 Chest pain, unspecified (principal); I25.10 Atherosclerotic heart disease of native coronary artery without angina pectoris; E11.9 Type 2 diabetes mellitus without complications; I10 Essential (primary) hypertension; E78.5 Hyperlipidemia, unspecified; J44.9 Chronic obstructive pulmonary disease, unspecified; F17.200 Nicotine dependence, unspecified, uncomplicated; Z86.79 Personal history of other diseases of the circulatory system; Z88.0 Allergy status to penicillin; Z90.49 Acquired absence of other specified parts of digestive tract; Z90.710 Acquired absence of both cervix and uterus; Z79.82 Long term (current) use of aspirin; Z79.899 Other long term (current) drug therapy
CPT/HCPCS: 80048; 80076; 82553; 82947; 84484; 85025; 93005; 94664; 94760; 96372; 96374; 96376; 99291; G0378; J1650; J1815; J2270